=== PATIENT | female | born 1965 | race American Indian/Alaskan Native ===

== ENCOUNTER 2018-01-17 08:56 | Outpatient (CLI) | payer OTHER ==
--- NOTE | 2018-01-18 09:00 | Vascular Lab Report ---
RENAL ARTERY DUPLEX EXAM: REASON FOR EXAM: Renal artery stenosis. NOTE: Visualization is technically adequate. COMMENTS ON THE AORTA: The aorta is patent. Normal flow velocities are observed. No aneurysmal dilatation is noted. Mild atherosclerotic change is identified. The celiac artery is patent with normal flow velocity. The superior mesenteric artery is patent with normal flow velocity. COMMENTS ON THE RIGHT KIDNEY: The kidney measures 8.87 centimeters in greatest dimension. This finding is consistent with at least mild atrophy. The renal artery is patent. Maximum systolic velocity is 175 cm/sec. This finding is consistent with less than 60% diameter reduction. Renal aortic index is 1.86. This finding is consistent with less than 60% diameter reduction. Overall findings are consistent with less than 60% diameter reduction in the renal artery. COMMENTS ON THE LEFT KIDNEY: The kidney measures 8.87 centimeters in greatest dimension. This finding is consistent with mild atrophy. A left renal cyst with maximum diameter 1.74 cm is noted as well. The renal artery is patent. Maximum systolic velocity is 150 cm/sec. This finding is consistent with less than 60% diameter reduction. Renal aortic index is 1.6. This finding is consistent with less than 60% diameter reduction. Overall findings are consistent with less than 60% diameter reduction in the renal artery. IMPRESSION: RIGHT KIDNEY: Less than 60% diameter reduction in the renal artery. Mild renal atrophy is noted. LEFT KIDNEY: Less than 60% diameter reduction in the renal artery. Mild renal atrophy is noted. A left renal cyst is noted.
== END 2018-01-17 08:57 | disposition home or self-care (01) ==
LOC: VAS 08:56
PROVIDERS: ATTEND Internal Medicine Nephrology
DX: N18.3 Chronic kidney disease, stage 3 (moderate) (principal); N28.1 Cyst of kidney, acquired; N26.1 Atrophy of kidney (terminal)
CPT/HCPCS: 93975